=== PATIENT | female | born 1955 | race Two or more races ===

== ENCOUNTER 2019-11-27 10:35 | Outpatient (CLI) | payer OTHER | END 2019-11-27 10:37 | disposition home or self-care (01) | LOC: SONOGRAMA 10:35 | PROVIDERS: ATTEND Pathology Anatomic Pathology & Clinical Pathology | DX: E04.2 Nontoxic multinodular goiter (principal) ==

== ENCOUNTER → 2020-10-22 15:16 | Outpatient (CLI) | payer OTHER | END | disposition home or self-care (01) | LOC: RAD 15:16 | DX: M54.89 Other dorsalgia (principal) ==

== ENCOUNTER 2020-12-07 08:00 | Outpatient (CLI) | payer OTHER | END 2020-12-07 08:30 | disposition home or self-care (01) | LOC: PPH VACUNA 08:00 | PROVIDERS: ATTEND Emergency Medicine Pediatric Emergency Medicine | DX: Z23 Encounter for immunization (principal) ==

== ENCOUNTER → 2021-06-16 | Outpatient (CLI) | payer OTHER | END | disposition home or self-care (01) | LOC: SONOGRAMA 09:37 | PROVIDERS: ATTEND Internal Medicine Endocrinology, Diabetes & Metabolism | DX: E04.2 Nontoxic multinodular goiter (principal) ==

== ENCOUNTER 2021-06-28 08:00 | Outpatient (CLI) | payer OTHER | END 2021-06-28 08:30 | disposition home or self-care (01) | LOC: PPH VACUNA 08:00 | PROVIDERS: ATTEND Emergency Medicine Pediatric Emergency Medicine | DX: Z23 Encounter for immunization (principal) ==

== ENCOUNTER 2021-09-19 11:00 | Outpatient (CLI) | payer OTHER | END 2021-09-19 11:14 | disposition home or self-care (01) | LOC: MAMO-SONO 11:00 | DX: Z12.31 Encounter for screening mammogram for malignant neoplasm of breast (principal) ==

== ENCOUNTER 2021-11-21 12:26 | Outpatient (CLI) | payer OTHER | END 2021-11-21 12:36 | disposition home or self-care (01) | LOC: PPH VACUNA 12:26 | PROVIDERS: ATTEND Emergency Medicine Pediatric Emergency Medicine | DX: Z23 Encounter for immunization (principal) ==

== ENCOUNTER 2021-12-12 09:57 | Outpatient (CLI) | payer OTHER | END 2021-12-12 13:04 | disposition home or self-care (01) | LOC: SONOGRAMA 09:57 | DX: N64.9 Disorder of breast, unspecified (principal) ==

== ENCOUNTER 2022-02-10 11:03 | Outpatient (CLI) | payer OTHER | END 2022-02-10 11:09 | disposition home or self-care (01) | LOC: RAD 11:03 | PROVIDERS: ATTEND Obstetrics & Gynecology | DX: M25.561 Pain in right knee (principal); M25.562 Pain in left knee ==

== ENCOUNTER 2022-08-18 13:50 | Outpatient (CLI) | payer OTHER | END 2022-08-18 13:51 | disposition home or self-care (01) | LOC: NUCLEAR 13:50 | DX: M81.0 Age-related osteoporosis without current pathological fracture (principal) ==

== ENCOUNTER 2022-08-18 14:14 | Outpatient (CLI) | payer OTHER | END 2022-08-18 14:17 | disposition home or self-care (01) | LOC: RAD 14:14 | DX: I70.0 Atherosclerosis of aorta (principal) ==

== ENCOUNTER 2023-09-06 09:03 | Outpatient (CLI) | payer OTHER | END 2023-09-06 09:34 | disposition home or self-care (01) | LOC: MAMO-SONO 09:03 | DX: N64.9 Disorder of breast, unspecified (principal); Z12.31 Encounter for screening mammogram for malignant neoplasm of breast ==

== ENCOUNTER 2024-01-17 10:41 | Outpatient (CLI) | payer OTHER | END 2024-01-17 10:47 | disposition home or self-care (01) | LOC: RAD 10:41 | DX: M17.4 Other bilateral secondary osteoarthritis of knee (principal) ==

== ENCOUNTER 2024-10-22 10:03 | Outpatient (CLI) | payer OTHER | END 2024-10-22 10:05 | disposition home or self-care (01) | LOC: MAMO-SONO 10:03 | DX: N64.9 Disorder of breast, unspecified (principal); Z12.31 Encounter for screening mammogram for malignant neoplasm of breast ==

== ENCOUNTER 2025-02-12 08:55 | Outpatient (CLI) | payer OTHER | END 2025-02-12 08:57 | disposition home or self-care (01) | LOC: MAMO-SONO 08:55 | DX: R92.8 Other abnormal and inconclusive findings on diagnostic imaging of breast (principal) ==